=== PATIENT | male | born 1950 | race Caucasian/White ===

== ENCOUNTER 2020-01-21 06:50 | Day surgery (SDC) | payer MEDICARE, BC ==
[~2020-01-21] VITALS: Ht 193 cm; Wt 115.4 kg
[2020-01-21 07:15] VITALS: BP 135/77
[2020-01-21 07:35] LABS: BASOPHILS # (AUTO) 0.1 X10'3 (0-0.2); HEMOGLOBIN 13.1 g/dl (14.0-17.9); MONOCYTES # (AUTO) 1.1 X10'3 (0-0.9); MONOCYTES % (AUTO) 10.9 % (2-12)
[2020-01-21 07:37] LABS: BASOPHILS % (AUTO) 0.8 % (0-1); EOSINOPHILS # (AUTO) 0.2 X10'3 (0-0.9); EOSINOPHILS % (AUTO) 2.5 % (0-6); HEMATOCRIT 39.7 % (42.0-52.0); LYMPHOCYTES # (AUTO) 2.6 X10'3 (1.1-4.8); LYMPHOCYTES % (AUTO) 25.8 % (21-51); MEAN CORPUSCULAR HEMOGLOBIN 26.9 PG (27.0-31.0); MEAN CORPUSCULAR HGB CONC 32.9 g/dL (33.0-36.5); MEAN CORPUSCULAR VOLUME 81.8 FL (78-98); PLATELET COUNT 219 X10'3 (140-440); RED BLOOD COUNT 4.86 X10'6 (4.70-6.10); RED CELL DISTRIBUTION WIDTH 15.3 % (11.5-14.5)
[2020-01-21] MEDS ORDERED: midazolam 2 mg/2 ml injection ONE ×4 (07:38→08:53)
[2020-01-21] MEDS ORDERED: vancomycin 1,000mg inj ONE (07:38)
[2020-01-21] MEDS ORDERED: clindamycin 600mg/D5W 50ml 50 ML IV ONE (07:38)
[2020-01-21] MEDS ORDERED: LIDOcaine 1% W/epiNEPHrine 1:100,000 20ml vial ONE (07:38)
[2020-01-21] MEDS ORDERED: fentaNYL/PF 50MCG/1 ML 2ML syringe ONE ×3 (07:38→08:53)
[2020-01-21 07:42] LABS: ALBUMIN 3.8 G/DL (3.4-5.0); ANION GAP 3 (8-16); BLOOD UREA NITROGEN 14 MG/DL (7-18); BUN/CREATININE RATIO 14.6 (5.4-32.0); CALCIUM 10.1 MG/DL (8.5-10.1); CHLORIDE 104 MMOL/L (99-107); CREATININE 0.96 MG/DL (0.60-1.10); GLUCOSE 116 MG/DL (70-104); MAGNESIUM 1.9 MG/DL (1.5-2.4); POTASSIUM 3.7 MMOL/L (3.5-5.1); SODIUM 135 MMOL/L (135-145); TOTAL CARBON DIOXIDE 27.7 MMOL/L (24-32); eGFR 78 ML/MIN
[2020-01-21] MEDS ORDERED: ALBU0.63 NEB (07:54)
[2020-01-21] MEDS ORDERED: APIX5TAB3 PO (07:56)
[2020-01-21] MEDS ORDERED: ATOR40TA PO (07:56)
[2020-01-21] MEDS ORDERED: OMEP40CA13 PO (07:57)
[2020-01-21] MEDS ORDERED: ACET-2119 PO (07:58)
[2020-01-21] MEDS ORDERED: SILD100T PO (07:58)
[2020-01-21] MEDS ORDERED: vitamin D PO (08:00)
[2020-01-21] MEDS ORDERED: iohexol 350 MG/ML 50ML vial IV ONE (08:30)
[2020-01-21] MEDS ORDERED: diphenhydrAMINE 50 mg/ml inj ONE (08:53)
[2020-01-21 09:45] VITALS: BP 123/60
[2020-01-21 10:00] VITALS: BP 123/61
[2020-01-21] MEDS ORDERED: normal saline 1000ml 1,000 ML IV SCH (10:05)
[2020-01-21 10:15] VITALS: BP 116/60
[2020-01-21 10:30] VITALS: BP 111/63
[2020-01-21 11:00] VITALS: BP 110/52
== END 2020-01-21 11:30 | disposition home or self-care (01) ==
LOC: SSTAY O 06:50
PROVIDERS: ATTEND Internal Medicine Cardiovascular Disease
DX: I49.5 Sick sinus syndrome (principal); I48.0 Paroxysmal atrial fibrillation; I44.2 Atrioventricular block, complete; I25.118 Atherosclerotic heart disease of native coronary artery with other forms of angina pectoris; E78.5 Hyperlipidemia, unspecified; J45.909 Unspecified asthma, uncomplicated; Z96.653 Presence of artificial knee joint, bilateral; Z98.41 Cataract extraction status, right eye; Z98.42 Cataract extraction status, left eye; Z98.890 Other specified postprocedural states; Z85.828 Personal history of other malignant neoplasm of skin; Z72.89 Other problems related to lifestyle; Z95.1 Presence of aortocoronary bypass graft; Z88.0 Allergy status to penicillin; Z88.1 Allergy status to other antibiotic agents; Z80.9 Family history of malignant neoplasm, unspecified
CPT/HCPCS: 33208; 36415; 71045; 80048; 83735; 85025; 85610; 93005; 99152; 99153; C1785; C1894; C1898; J1200; J2250; J3010; J3370; J7050; Q9967; A4565; A4620; A6449; J3490

== ENCOUNTER 2020-10-13 07:26 | Day surgery (SDC) | payer MEDICARE, BC ==
[2020-10-13] VITALS (10 sets, daily range): BP systolic 108–122; BP diastolic 59–76
[~2020-10-13] VITALS: Ht 193 cm; Wt 117.1 kg
[~2020-10-13 07:26] MED LIST: ACET-2119 PO; ALBU0.63 NEB; APIX5TAB3 PO; ATOR40TA PO; OMEP40CA13 PO; SILD100T PO; vitamin D PO
[2020-10-13] MEDS ORDERED: normal saline 1,000 ML IV SCH (07:55)
[2020-10-13] MEDS ORDERED: diphenhydrAMINE 25mg capsule PO PRN (07:55)
[2020-10-13] MEDS ORDERED: FLUT100B3 (08:08)
[2020-10-13 08:36] LABS: MEAN PLATELET VOLUME 9.9 FL (7.4-10.4)
[2020-10-13 08:38] LABS: HEMATOCRIT 38.4 % (42.0-52.0); MEAN CORPUSCULAR HEMOGLOBIN 27.8 PG (27.0-31.0); MEAN CORPUSCULAR HGB CONC 33.8 g/dL (33.0-36.5); MEAN CORPUSCULAR VOLUME 82.3 FL (78-98); PLATELET COUNT 195 X10'3 (140-440); RED BLOOD COUNT 4.66 X10'6 (4.70-6.10); RED CELL DISTRIBUTION WIDTH 14.9 % (11.5-14.5); WHITE BLOOD COUNT 7.5 X10'3 (4.5-11.0)
[2020-10-13] MEDS ORDERED: heparin 1,000unit/ml 10ml vial 10 ML ONE (08:51)
[2020-10-13] MEDS ORDERED: fentaNYL/PF 50MCG/1 ML 2ML syringe ONE (08:51)
[2020-10-13] MEDS ORDERED: midazolam 1 mg/ML 2ml injection ONE ×2 (08:51→09:25)
[2020-10-13] MEDS ORDERED: iohexol 350MG/ML 100ml bottle IV ONE ×2 (08:51→09:44)
[2020-10-13] MEDS ORDERED: LIDOcaine 1% (10mg/ml)w/preservative injection 20ml MDV ONE (08:51)
[2020-10-13 08:55] LABS: ALBUMIN 3.6 G/DL (3.4-5.0); ANION GAP 10 (8-16); BLOOD UREA NITROGEN 18 MG/DL (7-18); BUN/CREATININE RATIO 20.7 (5.4-32.0); CHLORIDE 108 MMOL/L (99-107); CREATININE 0.87 MG/DL (0.60-1.10); GLUCOSE 110 MG/DL (70-104); MAGNESIUM 1.8 MG/DL (1.5-2.4); POTASSIUM 4.1 MMOL/L (3.5-5.1); SODIUM 144 MMOL/L (135-145); TOTAL CARBON DIOXIDE 25.9 MMOL/L (24-32); eGFR 87 ML/MIN
[2020-10-13 09:25] LABS: CALCIUM 9.8 MG/DL (8.5-10.1); PLATELET ESTIMATE NORMAL; TOTAL CELLS COUNTED 100
[2020-10-13] MEDS ORDERED: proCHLORperazine 10 MG/2 ml inj IV PRN (10:45)
[2020-10-13] MEDS ORDERED: HYDROcodone/acetaminophen 5mg/325mg tablet PO PRN (10:45)
[2020-10-13] MEDS ORDERED: HYDROcodone/acetaminophen 10/325mg tab PO PRN (10:45)
[2020-10-13] MEDS ORDERED: ondansetron/PF 4mg/2ml inj IV PRN (10:45)
[2020-10-13] MEDS ORDERED: normal saline 1000ml 1,000 ML IV SCH (11:00)
== END 2020-10-13 14:15 | disposition home or self-care (01) ==
LOC: SSTAY O 07:26
PROVIDERS: ATTEND Internal Medicine Cardiovascular Disease
DX: R07.89 Other chest pain (principal); I25.718 Atherosclerosis of autologous vein coronary artery bypass graft(s) with other forms of angina pectoris; I25.82 Chronic total occlusion of coronary artery; I44.2 Atrioventricular block, complete; I48.0 Paroxysmal atrial fibrillation; E78.5 Hyperlipidemia, unspecified; J45.909 Unspecified asthma, uncomplicated; M11.261 Other chondrocalcinosis, right knee; Z95.0 Presence of cardiac pacemaker; Z96.653 Presence of artificial knee joint, bilateral; Z98.41 Cataract extraction status, right eye; Z98.42 Cataract extraction status, left eye; Z98.890 Other specified postprocedural states; Z85.828 Personal history of other malignant neoplasm of skin; Z79.899 Other long term (current) drug therapy; Z79.01 Long term (current) use of anticoagulants; Z72.89 Other problems related to lifestyle; Z88.0 Allergy status to penicillin; Z88.1 Allergy status to other antibiotic agents; Z80.9 Family history of malignant neoplasm, unspecified
CPT/HCPCS: 80048; 83735; 85025; 85610; 93005; 93459; 99152; C1760; C1769; C1894; J1644; J2001; J2250; J3010; J7030; Q0163; Q9967; 85007; 99153; A4620; A6258